=== PATIENT | male | born 1965 | race Caucasian/White ===

== ENCOUNTER 2016-08-20 23:27 | Emergency (ER) | payer MEDICAID ==
[2016-08-20 23:33] VITALS: RESP 18; TEMP 97.5
[2016-08-21] MEDS ORDERED: TDAP ADULT 0.5 ML INJ (BOOSTRIX) IM ONE (00:16)
--- NOTE | 2016-08-21 00:20 | EDPHY ---
H & P Stated Complaint: cut arm with boxcutter at 1830 today HPI/ROS: CHIEF COMPLAINT: Forearm laceration HISTORY OF PRESENT ILLNESS: Patient was working with a box worker this evening around 6:30 p.m. when he fell. He landed on the box worker on the left forearm. He sustained a an oblique laceration the with the blade. Moderate bleeding but no pulsatile flow. No numbness or tingling. No weakness. He is more concerned about his tetanus status than anything else as his last Tdap was close to 10 years ago. He has no pain at any time. No other associated complaints or modifying factors. TIME OF INJURY: 6:30 p.m. TETANUS STATUS: Questionable, possibly greater than 10 years REVIEW OF SYSTEMS: Ten systems reviewed and are negative unless otherwise noted in the HPI EXAMINATION General Appearance: Alert, no distress Head: normocephalic, atraumatic Cardiovascular: Pulses normal throughout. Symmetric radial pulses 2+ Brisk cap refill Neurological: A&O, sensory symmetric, strength symmetric Skin: Warm and dry, no rash. There is a 2 cm laceration on the left forearm, volar. This is oblique. Minimal bleeding noted. No foreign body. No pulsatile blood flow. Extremities: Minimal tenderness over the area of laceration. The flexor apparatus fully intact. Good strength of the interossei. Brisk cap refill in all 5 fingers. Two-point sensation intact in the affected extremity. MDM: 12:15 a.m. Accidental cut to the midportion of the left forearm, volar. This was this evening. Neurovascular intact. Wound has been anesthetized. Proceed with irrigation closure. Tetanus status will be updated tonight. 12:35 a.m. Simple Left forearm laceration without involvement of the flexor tendon structures. Neurovascular intact distally. Wound was irrigated copiously and explored. No foreign body. Wound was approximated as below. Wound care discussed. Tetanus status was updated here at this visit. Follow up here in 7- 10 days for suture removal. Follow up with primary care physician otherwise. Return here for signs of infection as discussed. Discharged home neurovascular intact, stable condition. PROCEDURE: Laceration repair Consent: Verbal Location: Left forearm, volar Length of repair: 2 cm Complexity: Simple Layer involvement: Single Anesthesia: local, 1% lidocaine with epinephrine, 5 mL Irrigation: Extensive Debridement: none Procedure description: Following good anesthesia, the wound was copiously irrigated. Wound bed was explored and there is no foreign body noted. Wound borders were approximated well with good hemostasis. Tolerated well without complication. Suture/Staple material: 5-0 Prolene, 4 simple interrupted sutures Wound care: Routine as discussed Suture/Staple removal: 7-10 Days SUTURE STAPLE REMOVAL: 7-10 days ED Precautions: Worsening pain. Erythema, edema, cyanosis, pallor, paresthesia or anesthesia. SUPERVISION: This patient was independently evaluated without direct examination by the attending physician. Case was discussed with attending physician. Source: Patient Exam Limitations: No limitations - Personal History Current Tetanus/Diphtheria Vaccine: No Current Tetanus Diphtheria and Acellular Pertussis (TDAP): No Tetanus Vaccine Date: >10 years - Medical/Surgical History Hx Asthma: No Hx Chronic Respiratory Disease: No Hx Diabetes: No Hx Cardiac Disease: No Hx Renal Disease: No Hx Cirrhosis: No Hx Alcoholism: No Hx HIV/AIDS: No Hx Splenectomy or Spleen Trauma: No Other PMH: denies - Social History Smoking Status: Never smoked Constitutional: Initial Vital Signs Temperature (C) 97.5 F 08/20/16 23:29 Heart Rate 100 08/20/16 23:29 Respiratory Rate 18 08/20/16 23:29 Blood Pressure 118/74 08/20/16 23:29 O2 Sat (%) 92 08/20/16 23:29 O2 Delivery Mode Room Air Allergies/Adverse Reactions: lactose Allergy (Verified 08/31/15 07:39) Home Medications: Medication Instructions Recorded NK [No Known Home Meds] 08/20/16 Departure - Departure Disposition: Home, Routine, Self-Care Clinical Impression: Laceration of forearm without complication Qualifiers: Encounter type: initial encounter Laterality: left Qualified Code(s): S51.812A - Laceration without foreign body of left forearm, initial encounter Condition: Good Instructions: Care For Your Stitches (ED) Additional Instructions: Wound care daily as discussed. Return here for redness, purulence or dehiscence of the wound. Follow up here in 7-10 days for suture removal Referrals: Aditya Servin MD [Primary Care Provider] - As per Instructions Physician,Emergency DeptMD [Medical Doctor] - As per Instructions
[2016-08-21 01:06] VITALS: BP 115/70; PULSE 95; O2SAT 93
== END 2016-08-21 01:13 | disposition home or self-care (01) ==
PROC: 3E0234Z Introduction of Serum, Toxoid and Vaccine into Muscle, Percutaneous Approach (ICD-10-PCS; principal; 2016-08-20)
PROC: 0HQEXZZ Repair Left Lower Arm Skin, External Approach (ICD-10-PCS; principal; 2016-08-20)
DX: S51.812A Laceration without foreign body of left forearm, initial encounter (principal); Z23 Encounter for immunization; W27.0XXA Contact with workbench tool, initial encounter

== ENCOUNTER 2016-09-01 19:15 | Emergency (ER) | payer MEDICAID ==
[2016-09-01 19:20] VITALS: BP 145/88; PULSE 88; RESP 16; TEMP 98.4; O2SAT 95
[2016-09-01] MEDS ORDERED: CEPHALEXIN 500MG PREPACK#4 BTL TAKEHOME ONE (21:18)
--- NOTE | 2016-09-01 21:21 | EDPHY ---
H & P Time Seen by Provider: 09/01/16 20:45 HPI/ROS: CHIEF COMPLAINT: left forearm complaint HISTORY OF PRESENT ILLNESS: 50-year-old male presents emergency department for evaluation and wound check of his left forearm. Patient had sutures placed 10 days ago after a puncture wound from a call box wirer. Patient states he only change the bandage once in the last 10 days. He reports over the last 5 days it has become more tender and red. He denies fevers or chills, no drainage. He was not placed on antibiotics. Smoking Status: Never smoked Physical Exam: GEN: Awake, alert, oriented, no acute distress RESP: nl resp effort MSK: Normal strength and sensation of left arm SKIN: 1.5 cm laceration with [address] with mild surrounding erythema and tenderness, no drainage Constitutional: Initial Vital Signs Temperature (C) 36.9 C 09/01/16 19:18 Heart Rate 88 09/01/16 19:18 Respiratory Rate 16 09/01/16 19:18 Blood Pressure 145/88 H 09/01/16 19:18 O2 Sat (%) 95 09/01/16 19:18 O2 Delivery Mode Room Air Allergies/Adverse Reactions: lactose Allergy (Verified 08/31/15 07:39) Home Medications: Medication Instructions Recorded Cephalexin [Keflex] 500 mg PO QID 4 Days 09/01/16 MDM/Departure - MDM Medications Given: Discontinued Medications Cephalexin (Keflex 500 Mg Prepack#4) 1 btl TAKEHOME EDNOW ONE PRN Reason: Protocol Stop: 09/01/16 21:19 Last Admin: 09/01/16 21:21 Dose: 1 btl ED Course/Re-evaluation: 50 year old male with sutures placed to left forearm 10 days ago. He has surrounding erythema and tenderness over the past 5 days, no drainage or fevers. He is placed on Keflex. He is return in 4 days for suture removal. He is given return precautions for worsening symptoms. - Depart Disposition: Home, Routine, Self-Care Clinical Impression: Cellulitis Qualifiers: Site of cellulitis: extremity Site of cellulitis of extremity: upper extremity Laterality: left Qualified Code(s): L03.114 - Cellulitis of left upper limb Condition: Good Instructions: Cellulitis (ED) Additional Instructions: Take your antibiotic 4 times a day for 5 days, return to the emergency department in 4 days for suture removal. Wash your arm daily with soap and water. Keep clean and dry. Return to the emergency department for worsening symptoms, new symptoms or concerns. Prescriptions: Cephalexin [Keflex] 500 mg PO QID 4 Days Referrals: Aditya Servin MD [Primary Care Provider] - Follow Up Only If Needed
== END 2016-09-01 21:30 | disposition home or self-care (01) ==
DX: L03.114 Cellulitis of left upper limb (principal)